=== PATIENT | female | born 1960 | race Caucasian/White ===

== ENCOUNTER 2018-03-11 05:34 | Day surgery (SDC) | payer OTHER ==
[2018-03-06 10:41] VITALS: BMI 19.0
[~2018-03-11] VITALS: Ht 162.6 cm; Wt 50.5 kg
[~2018-03-11 05:34] MED LIST: ESCI1TAB6 PO; IPRA1AER2 INH; TIOT1AER2 INH; VARE1PAK15 PO
[2018-03-11] MEDS ORDERED: CEFAZOLIN 2000MG IV PUSH 15 ML IV SCH (06:00)
[2018-03-11] MEDS ORDERED: LACTATED RINGER'S 1000ML 1,000 ML IV SCH ×2 (06:00→07:44)
[2018-03-11 06:02] VITALS: BP 145/90; PULSE 78; TEMP 36.8; O2SAT 97; Ht 162.6 cm; Wt 50.5 kg
[2018-03-11] MEDS ORDERED: HYDROmorphone INJ 1 MG/ML SYR IV PRN (06:30)
[2018-03-11] MEDS ORDERED: EpHEDrine SULFATE INJ 50 MG/ML AMP IV PRN (06:30)
[2018-03-11] MEDS ORDERED: FENTANYL CITRATE INJ 50 MCG/1 ML 2 ML VIAL IV PRN (06:30)
[2018-03-11] MEDS ORDERED: ATROPINE SULFATE 0.1 MG/ML 5ML SYR IV PRN (06:30)
[2018-03-11] MEDS ORDERED: ONDANSETRON INJ 2 MG/ML 2 ML VIAL IV PRN ×3 (06:30→07:45)
[2018-03-11] MEDS ORDERED: PROMETHAZINE HCL INJ 12.5 MG in SODIUM CHLORIDE 0.9% 50ML 50 ML IV PRN (06:30)
[2018-03-11] MEDS ORDERED: PHENYLEPHRINE 100MCG/ML 5ML SYR IV PRN (06:30)
[2018-03-11] MEDS ORDERED: THROMBIN FOR SOLN 20000 UNIT KIT ONE (06:35)
[2018-03-11] MEDS ORDERED: LIDOCAINE HCL 1% 20 ML VIAL ONE (06:35)
[2018-03-11] MEDS ORDERED: HEPARIN SOD (PORCINE) 1000 UNIT/ML 10 ML VIAL ONE (06:35)
[2018-03-11] MEDS ORDERED: CEFAZOLIN SOD 1 GM VIAL ONE (06:35)
--- NOTE | 2018-03-11 06:45 | History & Physical Bridge Note ---
H&P Re-Evaluation Bridge Note: I have examined the patient, reviewed the History & Physical and in the interval since the performance of the History & Physical I have noted the following changes of clinical significance: No changes noted
[2018-03-11] MEDS ORDERED: MIDAZOLAM HCL 1 MG/ML 2ML VIAL ONE (06:47)
[2018-03-11] MEDS ORDERED: FENTANYL CITRATE INJ 50 MCG/1 ML 2 ML VIAL ONE (06:47)
[2018-03-11] MEDS ORDERED: HYDR-5688 PO (07:28)
[2018-03-11] MEDS ORDERED: PHENYLEPHRINE 100MCG/ML 5ML SYR ONE (07:30)
[2018-03-11] MEDS ORDERED: PROPOFOL IV EMULSION 10 MG/ML 20 ML VIAL ONE (07:30)
[2018-03-11] MEDS ORDERED: DEXAMETHASONE SOD INJ 4 MG/ML VIAL ONE (07:30)
[2018-03-11] MEDS ORDERED: ONDANSETRON INJ 2 MG/ML 2 ML VIAL ONE (07:30)
--- NOTE | 2018-03-11 07:30 | Discharge Instructions ---
Discharge Instructions Date of Service Mar 11, 2018. Visit Reason for Visit: Lung Cancer Discharge Discharge Diagnosis / Problem: A-port Discharge Goals Goal(s): Therapeutic intervention Activity Recommendations Activity Limitations: as noted below Shower/Bathe: keep incision dry (for 2 days) Driving or Machine Use: resume 1 day after discharge Anesthesia . Post Anesthesia Instructions: If you have had General Anesthesia or IV Sedation: * Do not drive today. * Resume driving when surgeon permits. * Do not make important decisions or sign legal documents today. * Call surgeon for: 1. Temperature elevations greater than 101 degrees F. 2. Uncontrollable pain. 3. Excessive bleeding. 4. Persistent nausea and vomiting. 5. Medication intolerance (nausea, vomiting or rash). * For nausea and vomiting use only clear liquids such as: tea, soda, bouillon until nausea subsides, then gradually increase diet as tolerated. * If you have any concerns or questions, call your surgeon's office. If physician is unavailable and it is an emergency, call 911 or go to the nearest emergency room. . Instructions / Follow-Up Instructions / Follow-Up Dr. Osman's office in 2 weeks for suture removal, call [phone] if you have any questions or need to schedule It is OK for port to be used Diet Recommendations Recommended Home Diet: no limitations Pending Studies Studies pending at discharge: no Medical Emergencies . Who to Call and When: Medical Emergencies: If at any time you feel your situation is an emergency, please call 911 immediately. . Non-Emergent Contact Non-Emergency issues call your: Surgeon Call Non-Emergent contact if: you have a fever, temperature is above 101.5, your pain is not controlled, wound has increased redness, wound has increased pain, you have any medication questions . . "Provider Documentation" section prepared by Jeffrey Cummings. .
[2018-03-11] MEDS ORDERED: HYDROCODONE/ACETAMIN 5/325MG TAB PO PRN ×3 (07:45)
[2018-03-11] MEDS ORDERED: MoRPHine SULFATE 2 MG/ML CARP IV PRN (07:45)
--- NOTE | 2018-03-11 07:46 | [facility] Operative Report ---
Operative Report Operative Date Mar 11, 2018. Pre-Operative Diagnosis Squamous Cell Carcinoma of lung Post-Operative Diagnosis Squamous Cell Carcinoma of lung Procedure(s) Performed Insertion of A-port right subclavin Vein Surgeon Dr. Ede Osman Direct Marketing Specialist Surgeon(s) None Estimated Blood Loss 10 ml Findings placed via Rt subclavian vein Specimens none per surgeon Drains None Anesthesia Type General Complication(s) none Disposition Recovery Room / PACU I attest to the content of the Intraoperative Record and any orders documented therein. Any exceptions are noted below.
--- NOTE | 2018-03-11 08:23 | OPERATIVE REPORT ---
DATE OF OPERATION: 03/11/2018 NAME OF OPERATION: Access port placement. PREOPERATIVE DIAGNOSIS: Lung cancer. POSTOPERATIVE DIAGNOSIS: Lung cancer. STAFF SURGEON: Dr. Osman. ANESTHESIA: General. DESCRIPTION OF PROCEDURE: The patient was brought in the operating room and placed on the operating room table in supine position. Her right neck and chest were prepped and draped in usual fashion. Initially, we tried local sedation, but the patient was coughing; therefore, we had to place an LMA. At this point, skin and subcutaneous tissue over the right deltopectoral groove were anesthetized. Incision made carrying dissection down identifying the cephalic vein. The vein was ligated distally and then opened. I was unable to pass a wire or the catheter into the subclavian vein. Therefore, the cephalic vein was ligated. The patient was placed in Trendelenburg position. Then using a puncture technique, I was able to localize the right subclavian vein. A wire passed under fluoroscopy. The dilator and introducer were then passed over the wire under fluoroscopy. The dilator and wire removed. Catheter passed down into the superior vena cava, positioned appropriately, aspirated and flushed with heparinized solution. The introducer was also removed. At this point, a pocket was fashioned in the chest wall. The catheter attached to the port. Port was aspirated and flushed with heparinized solution. The port was placed into the pocket and secured using 3-0 Prolene suture. The pocket was irrigated with antibiotic solution. Subcutaneous tissue reapproximated using 2-0 chromic suture and then the skin reapproximated using 4-0 nylon suture. Dressing applied. The patient transferred to recovery room in stable condition. I attest to the content of the Intraoperative Record and any orders documented therein. Any exception s are noted below.
--- NOTE | 2018-03-11 08:25 | DIAGNOSTIC IMAGING REPORT ---
CHEST ONE VIEW PORTABLE HISTORY: port placement COMPARISON: Chest 01/30/2018. FINDINGS: The lungs are clear. The heart is normal in size. No pleural effusions. No pneumothorax. Right subclavian Port-A-Cath terminates in the proximal SVC. Left hilar fullness persists. IMPRESSION: 1. Right subclavian Port-A-Cath terminates in the proximal SVC. No pneumothorax. 2. Left hilar fullness persists. Electronically signed by: Darryl Kebede M.D. 03/11/2018 8:23 AM Dictated Date/Time: 03/11/2018 8:18 AM
--- NOTE | 2018-03-11 08:37 | Anesthesiology Progress Note ---
Anesthesia Post Op Note Date & Time Mar 11, 2018 at 08:37 Vital Signs Pain Intensity: 0 Vital Signs Past 12 Hours Date Time Temp Pulse Resp B/P (MAP) Pulse Ox O2 Delivery O2 Flow Rate FiO2 03/11/18 08:25 36.5 81 16 149/85 100 Nasal Cannula 2 03/11/18 08:15 79 16 140/89 100 Nasal Cannula 2 03/11/18 08:05 88 18 141/86 100 Oxymask 10 03/11/18 07:55 36.7 90 22 155/95 100 Oxymask 10 03/11/18 06:02 36.8 78 18 145/90 97 Room Air Notes Mental Status: alert / awake / arousable, participated in evaluation Pt Amnestic to Procedure: Yes Nausea / Vomiting: adequately controlled Pain: adequately controlled Airway Patency, RR, SpO2: stable & adequate BP & HR: stable & adequate Hydration State: stable & adequate Anesthetic Complications: no major complications apparent
[2018-03-11 08:47] VITALS: BP 145/89; PULSE 82; TEMP 36.9; O2SAT 96
[2018-03-11 09:20] VITALS: BP 136/76; PULSE 83; O2SAT 96
[2018-03-11 09:50] VITALS: BP 114/73; PULSE 82; TEMP 36.9; O2SAT 95
== END 2018-03-11 10:05 | disposition home or self-care (01) ==
LOC: C.ACU 05:34
PROVIDERS: ATTEND Surgery
DX: C34.90 Malignant neoplasm of unspecified part of unspecified bronchus or lung (principal); J44.9 Chronic obstructive pulmonary disease, unspecified; F32.9 Major depressive disorder, single episode, unspecified; F41.9 Anxiety disorder, unspecified

== ENCOUNTER → 2018-03-17 | Outpatient (CLI) | payer OTHER ==
[~2018-03-17] MED LIST changes: +HYDR-5688 PO
[2018-03-17 11:32] LABS: HEMATOCRIT 43.9 % (37-47); HEMOGLOBIN 15.5 g/dL (12.0-16.0); IG# 0.04 K/uL (0.00-0.02); LYMPH % 3.4 %; MEAN CELL VOLUME 93.6 fL (80-100); MEAN CORPUSCULAR HGB CONC 35.3 g/dl (32-36); MONO % 0.2 %; MONO ABS # 0.02 K/uL (0.11-0.59); NEUT % 96.1 %; NEUT ABS # 11.38 K/uL (1.4-6.5); PLATELET COUNT 362 K/uL (130-400); RED CELL DISTRIBUTION WIDTH CV 14.1 % (11.5-14.5); RED CELL DISTRIBUTION WIDTH SD 48.1 fL (36.4-46.3); WHITE BLOOD COUNT 11.84 K/uL (4.8-10.8)
[2018-03-17 11:53] LABS: ALBUMIN 4.2 gm/dl (3.4-5.0); ALKALINE PHOSPHATASE 59 U/L (45-117); ALT/SGPT 22 U/L (12-78); AST/SGOT 16 U/L (15-37); BLOOD UREA NITROGEN 13 mg/dl (7-18); CALCIUM 9.3 mg/dl (8.5-10.1); CARBON DIOXIDE 23 mmol/L (21-32); CREATININE 0.83 mg/dl (0.60-1.20); GLUCOSE 201 mg/dl (70-99); POTASSIUM 3.9 mmol/L (3.5-5.1); SODIUM 130 mmol/L (136-145); TOTAL PROTEIN 8.2 gm/dl (6.4-8.2)
== END | disposition home or self-care (01) ==
LOC: C.LABSPEC 11:18
PROVIDERS: ATTEND Internal Medicine Hematology & Oncology
DX: C34.90 Malignant neoplasm of unspecified part of unspecified bronchus or lung (principal)

== ENCOUNTER → 2018-03-30 | Outpatient (CLI) | payer OTHER ==
[~2018-03-30] MED LIST changes: +ONDA-170 PO; +PROC10TA PO
[2018-03-30 10:09] LABS: BASO % 0.3 %; BASO ABS # 0.01 K/uL (0-0.2); EOS % 1.6 %; EOS ABS # 0.05 K/uL (0-0.5); HEMATOCRIT 40.9 % (37-47); IG# 0.01 K/uL (0.00-0.02); LYMPH % 13.5 %; LYMPH ABS # 0.43 K/uL (1.2-3.4); MEAN CELL VOLUME 94.9 fL (80-100); MEAN CORPUSCULAR HEMOGLOBIN 32.5 pg (25-34); MEAN CORPUSCULAR HGB CONC 34.2 g/dl (32-36); MEAN PLATELET VOLUME 9.2 fL (7.4-10.4); MONO ABS # 0.32 K/uL (0.11-0.59); NEUT % 74.3 %; NEUT ABS # 2.37 K/uL (1.4-6.5); PLATELET COUNT 228 K/uL (130-400); RED CELL DISTRIBUTION WIDTH CV 13.6 % (11.5-14.5); WHITE BLOOD COUNT 3.19 K/uL (4.8-10.8)
[2018-03-30 10:32] LABS: ALBUMIN 3.7 gm/dl (3.4-5.0); ALKALINE PHOSPHATASE 54 U/L (45-117); ALT/SGPT 21 U/L (12-78); AST/SGOT 18 U/L (15-37); BLOOD UREA NITROGEN 9 mg/dl (7-18); CALCIUM 9.2 mg/dl (8.5-10.1); CARBON DIOXIDE 27 mmol/L (21-32); CREATININE 0.57 mg/dl (0.60-1.20); GLUCOSE 89 mg/dl (70-99); POTASSIUM 3.9 mmol/L (3.5-5.1); SODIUM 135 mmol/L (136-145); TOTAL PROTEIN 7.1 gm/dl (6.4-8.2)
== END | disposition home or self-care (01) ==
LOC: C.LABSPEC 09:56
PROVIDERS: ATTEND Internal Medicine Hematology & Oncology
DX: C34.90 Malignant neoplasm of unspecified part of unspecified bronchus or lung (principal)

== ENCOUNTER → 2018-04-06 | Outpatient (CLI) | payer OTHER ==
[~2018-04-06] MED LIST changes: -VARE1PAK15 PO
[2018-04-06 10:30] LABS: BASO % 0.6 %; BASO ABS # 0.02 K/uL (0-0.2); EOS % 0.6 %; EOS ABS # 0.02 K/uL (0-0.5); HEMATOCRIT 40.7 % (37-47); HEMOGLOBIN 14.2 g/dL (12.0-16.0); IG# 0.01 K/uL (0.00-0.02); LYMPH % 12.5 %; LYMPH ABS # 0.41 K/uL (1.2-3.4); MEAN CELL VOLUME 94.4 fL (80-100); MEAN CORPUSCULAR HEMOGLOBIN 32.9 pg (25-34); MEAN CORPUSCULAR HGB CONC 34.9 g/dl (32-36); MEAN PLATELET VOLUME 8.9 fL (7.4-10.4); MONO % 9.1 %; NEUT % 76.9 %; NEUT ABS # 2.52 K/uL (1.4-6.5); PLATELET COUNT 222 K/uL (130-400); RED CELL DISTRIBUTION WIDTH CV 13.9 % (11.5-14.5); RED CELL DISTRIBUTION WIDTH SD 47.4 fL (36.4-46.3); WHITE BLOOD COUNT 3.28 K/uL (4.8-10.8)
[2018-04-06 10:49] LABS: ALBUMIN 3.6 gm/dl (3.4-5.0); ALT/SGPT 21 U/L (12-78); AST/SGOT 15 U/L (15-37); BLOOD UREA NITROGEN 7 mg/dl (7-18); CALCIUM 8.7 mg/dl (8.5-10.1); CARBON DIOXIDE 25 mmol/L (21-32); CREATININE 0.58 mg/dl (0.60-1.20); GLUCOSE 81 mg/dl (70-99); SODIUM 136 mmol/L (136-145)
[2018-04-06 10:51] LABS: ALKALINE PHOSPHATASE 51 U/L (45-117); TOTAL PROTEIN 6.9 gm/dl (6.4-8.2)
== END | disposition home or self-care (01) ==
LOC: C.LABSPEC 10:09
PROVIDERS: ATTEND Internal Medicine Hematology & Oncology
DX: C34.90 Malignant neoplasm of unspecified part of unspecified bronchus or lung (principal)